=== PATIENT | female | born 1960 | race Caucasian/White ===

== ENCOUNTER → 2018-10-07 | Outpatient (CLI) | payer BC ==
[~2018-10-07] MED LIST: ALBU2.5V8 INH; CIPR10DR OT; CYCL1DRO OP; DIAZ5TAB4 PO; DILT180C2 PO; DRON400T PO; FLUT9.9S NS; GADOBUTROL 7.5 MMOL/7.5 ML VIAL IV ONE; HYDR12.58 PO; LANS30CA PO; LEVO25TA4 PO; METO25TA4 PO; MINE120C TP; MONT10TA9 PO; OMEP20CA9 PO; RIVA10TA PO; TRAZ-85 PO
--- NOTE | 2018-10-07 13:48 | KCIC ---
MRI Cervical Spine with and without contrast History: Cervicalgia, possible demyelinating disease Technique: Multiplanar, multi sequential pre and postcontrast MR imaging was performed of the cervical spine. Comparison: Outside facility exam 08/15/2018 Findings: There is motion degradation. Cervical cord caliber is within normal limits. Accurate evaluation for cord signal abnormality is limited due to motion degradation, no expansile signal abnormality and no defined signal abnormality reproducible on the various image sequences. Cervical vertebral body stature and AP alignment are maintained. There is anterior annular tear at C4-5, also posterior annular tear C5-6. Intervertebral disc spaces are relatively preserved. There is no significant marrow edema. There is no enhancement of the cervical cord or in the intervertebral disc spaces. More prominent anterior extradural enhancement in the left lateral recess C1-C3 levels is probably due to more prominent venous plexus, does not have masslike features. C2-C3: There is moderate to severe left facet degenerative change. Spinal canal and neural foramina are adequate. C3-C4: There is fairly severe left facet degenerative change. Spinal canal and right neural foramen are adequate, moderate to severe narrowing of the left neural foramen. C4-C5: There is bilateral facet degenerative change. Neural foramina and spinal canal are adequate. C5-C6: There is bilateral facet degenerative change. Spinal canal and right neural foramen are adequate, minimal narrowing of the left neural foramen. C6-C7: There is negligible bulge. Spinal canal is adequate. There is facet degenerative change. Neural foramina are overall adequate. C7-T1: Spinal canal and neural foramina are adequate. Impression: 1. There is motion degradation. There is no expansile or defined cervical cord signal abnormality, limited evaluation for subtle signal change. There is no enhancement of the cervical cord. Asymmetric anterior extradural enhancement in the left lateral recess C1-C3 is believed to be due to more prominent venous plexus, does not have masslike features. There is no cervical spinal stenosis. Facet degenerative change contributes to moderate to severe narrowing of the left C3-4 neural foramen. Electronically signed by: Robert Newell MD (10/07/2018 1:44 PM) [id number]
== END | disposition home or self-care (01) ==
LOC: KCIC MRI 10:06
PROVIDERS: ATTEND Psychiatry & Neurology Neurology with Special Qualifications in Child Neurology
DX: M48.02 Spinal stenosis, cervical region (principal); M47.812 Spondylosis without myelopathy or radiculopathy, cervical region
CPT/HCPCS: 72156; 82565; A9585

== ENCOUNTER → 2019-04-02 | Outpatient (CLI) | payer BC ==
[~2019-04-02] MED LIST changes: +ASPI81TA50 PO; +CETI10TA22 PO; +CHOL10003 PO; +CITA10TA4 PO; +CLON0.1T PO; +CYAN10005 PO; +DICL100G18 TP; +DIGO125T PO; +DILT120T3 PO; -GADOBUTROL 7.5 MMOL/7.5 ML VIAL IV ONE; +HYDR200T5 PO; +IOHEXOL 180 MG/ML 10 ML VIAL. ONE; +MONT10TA49 PO; -MONT10TA9 PO; +OMEP1CAP18 PO; +OMEP20CA10 PO; -OMEP20CA9 PO; +POTA10TA12 PO; +ROPI0.5T PO; +TRAZ-118 PO; -TRAZ-85 PO; +methylPREDNISolone ACETATE 40 MG/ML VIAL. ONE; +methylPREDNISolone ACETATE 80 MG/ML VIAL. ONE
--- NOTE | 2019-04-02 10:04 | PAIN ---
DATE OF SERVICE: 04/02/2019 DIAGNOSES: Lumbar radiculopathy, lumbar degenerative disk disease, lumbar and lumbosacral spondylosis. HISTORY OF PRESENT ILLNESS: The patient is 58-year-old female who returns for followup status post lumbar epidural steroid injection x1. The patient reports about 40% improvement after the first injection for a few days and the pain returning in the low back and left leg. The patient reports she was chasing her new puppy and fell and hit her left side. This has increased the pain, this is about a week ago. The patient reports that before that she was doing fairly well. She increased her activity, greater distance walking, doing activities at home and traveling with greater ease and comfort. The patient reports now it is waking her from sleep again about every 4 hours in the low back region, the posterior gluteus, posterior thigh, posterior calf, posterior ankle, and into the foot on the left side. The patient reports it is tingling, burning, aching in the back, sharp, and shooting down the leg, becoming more severe and unbearable. The patient reports it is a 10 on scale of 10 at its worst, least, and its average and is 10 today. The patient reports no new motor or sensory deficits, no new bowel or bladder incontinence or other complaints. PHYSICAL EXAMINATION: VITAL SIGNS: The patient's blood pressure 132/64, pulse 85, respirations 18, temperature 98.1 degrees Fahrenheit, height is 5 feet 7 inches, weighs 121 pounds. GENERAL: The patient is awake, alert, oriented, appropriate, very pleasant demeanor. HEENT: Head is normocephalic, atraumatic. Extraocular muscles are intact and symmetrical. Oral cavity, mucous membranes moist and pink. Dentition intact. NECK: Shows anterior throat supple without palpable lymphadenopathy noted. Swallow reflex is symmetrical. CHEST: Shows normal with inspection. Breath sounds clear to auscultation bilaterally. HEART: Shows S1, S2 clear. No murmurs auscultated. ABDOMEN: Soft, nontender, nondistended. No palpable organomegaly is noted. No rebound or guarding demonstrated. BACK: Shows spine grossly in the midline. Normal appearing thoracic kyphosis and lumbar lordotic curvature. Lumbar paraspinous shows symmetrical on inspection. On palpation shows moderate tenderness diffusely, but only with inferior aspect of the posterior lumbar paraspinous musculature in the lowest level, more on the left than the right. The patient has good rotational motion with some minor tenderness with extension, but not with forward flexion. Right and left lateral rotation is performed 10 degrees without difficulty bilaterally. EXTREMITIES: Lower extremities show deep tendon reflexes 1+ in the patellar and tendo-calcaneus tendons. Motor exam is strong with 5/5 dorsiflexion and extension on the right and 4/5 on the left. Peripheral pulses are 1+ posterior tibial. No peripheral edema is noted bilaterally. Options were discussed with the patient. The patient's old chart was reviewed as her current medication regimen updated. Current review of systems updated today as well and we will proceed with lumbar epidural steroid injections, second in the series. Risks were again discussed including, but not limited to bleeding, infection, possibility of epidural hematoma, subsequent neurologic compromise, dural puncture, headaches, spinal cord and/or nerve damage, side effects of steroid medication and poor results regarding pain control. The patient understands and wished to proceed. The patient will return to clinic in approximately 2 weeks for followup, was counseled as to return appointment, activity level, and side effects to be aware of. DIAGNOSES: Lumbar radiculopathy with lumbar degenerative disk disease, lumbar and lumbosacral spondylosis. PROCEDURE: Lumbar epidural steroid injection, translaminar approach L5-S1 level using C-arm fluoroscopic guidance under sterile prep and drape using local anesthetic. MEDICATION INJECTED: A total of 120 mg Depo-Medrol plus 10 mL of preservative-free normal saline and 2 mL of contrast. CONDITION AT DISCHARGE: Stable. The patient tolerated procedure well, had no complications. FILI LUGO MD DR: KEANU/fadi JOB#: [id number] / [id number]
== END ==
LOC: PNCL 07:32
PROVIDERS: ATTEND Anesthesiology
DX: M51.16 Intervertebral disc disorders with radiculopathy, lumbar region (principal); M47.816 Spondylosis without myelopathy or radiculopathy, lumbar region
CPT/HCPCS: 62323; J1030; J1040; Q9965

== ENCOUNTER → 2019-04-10 | Outpatient (CLI) | payer BC ==
[~2019-04-10] MED LIST changes: +BUPIVACAINE MPF 0.25% 10 ML VIAL. ONE
--- NOTE | 2019-04-10 11:40 | PAIN ---
DATE OF SERVICE: 04/10/2019 DIAGNOSES: Lumbar radiculopathy with lumbar degenerative disk disease, lumbar spondylosis. HISTORY OF PRESENT ILLNESS: The patient is a 58-year-old female who returns for followup status post lumbar epidural steroid injection x 2. The patient reports a 50% improvement only for about 3-4 days following the injection. The patient reports the pain returns in the low back and into the left greater than right lower extremity, mostly in the posterior gluteus and thigh now as well as the lateral and anterior thigh, at times across the low back is becoming more and more painful, especially on the left side. The patient reports it is a 10 on scale of 10 at its worst over the past week, a 9 at its average and a 6 at its least and is a 9 today. The patient reports sharp, shooting, tingling, radiating and across the low back, worse with standing, walking, changing positions, better with sitting or lying down, but awakens from sleep about every 5-6 hours. The patient reports initially the first few days, she was increasing distance walking was feeling much better, but the pain returned fairly significantly. The patient reports the pain is now across the low back is her primary concern and complaint, all more on the left side than the right. PHYSICAL EXAMINATION: VITAL SIGNS: The patient's blood pressure is 120/69, pulse 105, respirations 16, temperature 98.2 degrees Fahrenheit, weight is 123 pounds. GENERAL: The patient is awake, alert, oriented, appropriate, very pleasant demeanor. HEENT: Head is normocephalic, atraumatic. Extraocular movements are intact and symmetrical. Oral cavity, mucous membranes are moist and pink. Dentition is intact. NECK: Shows anterior throat supple without palpable lymphadenopathy noted. Swallow reflex symmetrical. CHEST: Shows normal with inspection. Breath sounds are clear bilaterally. HEART: Shows S1, S2 clear. No murmurs auscultated. ABDOMEN: Soft, nontender, nondistended. BACK: Shows spine grossly in the midline. Normal appearing thoracic kyphosis and some flattening of lumbar lordotic curvature. Lumbar paraspinous muscle shows symmetrical on inspection, on palpation shows some moderate tenderness diffusely bilaterally, but only diffusely, worse on the left than the right. The patient has good rotational motion with some moderate tenderness with left lateral rotation as well as with extension greater than 10 degrees. More severe significant pain in the left low back compared to the right, but not into the lower extremities. Lower extremities show deep tendon reflexes 1+ in the patellar and tendo calcaneus tendons are equal. Motor exam is approximately a 5 on a scale of 5 on the right and 4/5 on the left. Peripheral pulses are 1+ posterior tibial. No peripheral edema is noted bilaterally. Options were discussed with the patient. The patient's old chart was reviewed as her current medication regimen updated. Current review of systems updated today as well and we will proceed with bilateral L4-L5 and L5-S1 facet joint injections using C-arm fluoroscopic guidance. Risks were again discussed including, but not limited to bleeding, infection, possibility of epidural hematoma, subsequent neurologic compromise, dural puncture, headaches, spinal cord and/or nerve damage, side effects of steroid medication and poor results regarding pain control. The patient understands and wished to proceed. The patient will return to clinic in approximately 2 weeks for followup, was counseled on return appointment, activity level and side effects to be aware of. The patient will restart her Xarelto tomorrow. DIAGNOSES: Lumbar and lumbosacral spondylosis. PROCEDURES: Bilateral L4-L5 and L5-S1 facet joint injection using C-arm fluoroscopic guidance under sterile prep and drape using local anesthetic. MEDICATION INJECTED: A total of 120 mg Depo-Medrol plus 4 mL of total of 0.25% bupivacaine and 2 mL total of Isovue for contrast. CONDITION AT DISCHARGE: Stable. The patient tolerated the procedure well, had no complications. FILI LUGO MD DR: KEANU/fadi JOB#: [id number] / [id number]
== END ==
LOC: PNCL 08:51
PROVIDERS: ATTEND Anesthesiology
DX: M47.817 Spondylosis without myelopathy or radiculopathy, lumbosacral region (principal); M51.16 Intervertebral disc disorders with radiculopathy, lumbar region; Z88.0 Allergy status to penicillin
CPT/HCPCS: 64493; 64494; J1030; J1040; J3490; Q9965